=== PATIENT | male | born 1955 | race Two or more races ===

== ENCOUNTER 2024-10-21 18:30 | Inpatient (IN) | payer MEDICARE, OTHER ==
[~2024-10-21] VITALS: Ht 160 cm; Wt 68.9 kg
[2024-10-21 20:50] VITALS: BP 125/79; TEMP 97.5; O2SAT 96
[2024-10-21] MEDS ORDERED: ACETAMINOPHEN 325 MG TABLET PO PRN (22:00)
[2024-10-21] MEDS ORDERED: ONDANSETRON HCL/PF 4 MG/2 ML VIAL IVP PRN (22:00)
[2024-10-21] MEDS ORDERED: MAG HYDROX/AL HYDROX/SIMETH 30 ML UDC PO PRN (22:00)
[2024-10-21] MEDS ORDERED: MAGNESIUM HYDROXIDE 30 ML UDC PO PRN (22:00)
[2024-10-21 22:36] VITALS: BP 125/79; TEMP 97.5; O2SAT 96
[2024-10-21 22:47] VITALS: BP 125/79; TEMP 97.5; O2SAT 96
[2024-10-21 22:58] LABS: WHITE BLOOD COUNT (AUTO) 7.6 K/uL (4.3-11.0)
[2024-10-21 23:03] LABS: PLATELET COUNT (AUTO) 224 K/uL (150-450); RED BLOOD CELL COUNT(AUTO) 2.94 MIL/uL (4.5-6.0); RED CELL DISTRIBUTION WIDTH 18.5 % (11.5-15.0)
[2024-10-21 23:14] LABS: CALCIUM, SERUM 7.9 mg/dL (8.5-10.1); CREATININE 0.8 mg/dL (0.6-1.3); SODIUM SERUM 138.0 mmol/L (136-145); UREA NITROGEN, BLOOD 31.0 mg/dL (7-18)
[2024-10-21 23:27] LABS: EOSINOPHILS % (MANUAL) 17 % (0-4); LYMPHOCYTES % (MANUAL) 7 % (16-48); MONOCYTES % (MANUAL) 2 % (0-11.0); NEUTROPHILS % (MANUAL) 74 (42-76)
[2024-10-21 23:29] LABS: PLATELET ESTIMATE ADEQUATE
[2024-10-21] MEDS ORDERED: OCTREOTIDE 500 MCG/ML VIAL ONE (23:49)
[2024-10-21] MEDS ORDERED: OCTREOTIDE 100 MCG/ML VIAL ONE (23:56)
[2024-10-21] MEDS ORDERED: OCTREOTIDE 50 MCG/ML AMPUL ONE (23:56)
[2024-10-22] VITALS (7 sets, daily range): BP systolic 108–125; BP diastolic 60–79; TEMP 97.5–98.1; O2SAT 96–100
[2024-10-22] MEDS: OCTREOTIDE 1,250 MCG in IV NS 0.9% 247.5 ML IV SCH (00:23)
[2024-10-22 07:42] LABS: LDL 80.0 mg/dL (0-99)
[2024-10-22 07:49] LABS: ASPARTATE AMINOTRANSFERASE 32.0 U/L (15-37); CALCIUM, SERUM 7.4 mg/dL (8.5-10.1); CREATININE 0.8 mg/dL (0.6-1.3); PHOSPHORUS 2.7 mg/dL (2.5-4.9); SODIUM SERUM 137.0 mmol/L (136-145); TOTAL PROTEIN, SERUM 6.0 g/dL (6.4-8.2); UREA NITROGEN, BLOOD 26.0 mg/dL (7-18)
[2024-10-22] MEDS ORDERED: METF1000 PO (07:57)
[2024-10-22] MEDS ORDERED: EMPA10TA PO (07:57)
[2024-10-22] MEDS ORDERED: FERR325T23 PO (07:57)
[2024-10-22] MEDS ORDERED: FURO20TA4 PO (07:57)
[2024-10-22] MEDS: CEFTRIAXONE 1 G in IV D5W 50 ML IV SCH (08:04)
[2024-10-22] MEDS: PANTOPRAZOLE 40 MG VIAL IV SCH (08:05)
[2024-10-22 08:19] LABS: PLATELET COUNT (AUTO) 217 K/uL (150-450); RED BLOOD CELL COUNT(AUTO) 2.87 MIL/uL (4.5-6.0); RED CELL DISTRIBUTION WIDTH 18.3 % (11.5-15.0); WHITE BLOOD COUNT (AUTO) 9.1 K/uL (4.3-11.0)
[2024-10-22 08:31] LABS: IRON, SERUM 11.0 ug/dl (50-175)
[2024-10-22 09:04] LABS: NEUTROPHILS % (MANUAL) 61 (42-76)
[2024-10-22 09:05] LABS: EOSINOPHILS % (MANUAL) 27 % (0-4); LYMPHOCYTES % (MANUAL) 6 % (16-48); MONOCYTES % (MANUAL) 6 % (0-11.0); PLATELET ESTIMATE ADEQUATE
[2024-10-22] MEDS ORDERED: DEXTROSE 50%-WATER 50 ML DISP.SYRIN IV PRN (11:00)
[2024-10-22] MEDS: INSULIN REGULAR, HUMAN 100 UNIT/ML 3 ML VIAL SQ PRN (12:29)
[2024-10-22] MEDS: BLOOD SUGAR DIAGNOSTIC 1 EACH STRIP IN SCH (12:30)
[2024-10-22] MEDS: SOD FERRIC GLUC 125 MG in IV NS 0.9% 100 ML IV SCH (14:41)
[2024-10-22 18:36] LABS: INR 1.17 (0.91-1.10)
[2024-10-23] VITALS (10 sets, daily range): BP systolic 92–131; BP diastolic 54–83; TEMP 97.5–98.4; O2SAT 98–100
[2024-10-23 06:49] LABS: CALCIUM, SERUM 7.5 mg/dL (8.5-10.1); CREATININE 0.8 mg/dL (0.6-1.3); PHOSPHORUS 1.9 mg/dL (2.5-4.9); SODIUM SERUM 138.0 mmol/L (136-145); UREA NITROGEN, BLOOD 21.0 mg/dL (7-18)
[2024-10-23 07:29] LABS: PLATELET COUNT (AUTO) 214 K/uL (150-450); RED BLOOD CELL COUNT(AUTO) 2.70 MIL/uL (4.5-6.0); RED CELL DISTRIBUTION WIDTH 19.1 % (11.5-15.0); WHITE BLOOD COUNT (AUTO) 8.4 K/uL (4.3-11.0)
[2024-10-23] MEDS: EMPAGLIFLOZIN 10 MG TABLET PO SCH (08:10)
[2024-10-23] MEDS: FUROSEMIDE 20 MG TABLET PO SCH (08:10)
[2024-10-23] MEDS: POTASSIUM CHLORIDE 20 MEQ TAB.PRT.SR PO SCH (10:15)
[2024-10-23] MEDS ORDERED: POTASSIUM CL. PREMIX PERIPHER. 50 ML IV SCH (10:30)
[2024-10-23 12:23] LABS: EOSINOPHILS % (MANUAL) 24 % (0-4); LYMPHOCYTES % (MANUAL) 4 % (16-48); MONOCYTES % (MANUAL) 6 % (0-11.0); NEUTROPHILS % (MANUAL) 66 (42-76); PLATELET ESTIMATE ADEQUATE
[2024-10-23] MEDS: K PHOS NEUTRAL 250 MG TABLET PO ONE (15:22)
[2024-10-24 04:00] VITALS: BP 119/66; TEMP 97.9; O2SAT 98
[2024-10-24 07:22] LABS: PLATELET COUNT (AUTO) 199 K/uL (150-450); RED BLOOD CELL COUNT(AUTO) 3.22 MIL/uL (4.5-6.0); RED CELL DISTRIBUTION WIDTH 20.4 % (11.5-15.0); WHITE BLOOD COUNT (AUTO) 8.7 K/uL (4.3-11.0)
[2024-10-24 08:00] VITALS: BP 125/71; TEMP 97.5; O2SAT 99
[2024-10-24 08:09] LABS: CALCIUM, SERUM 7.5 mg/dL (8.5-10.1); CREATININE 0.7 mg/dL (0.6-1.3); PHOSPHORUS 2.2 mg/dL (2.5-4.9); SODIUM SERUM 144.0 mmol/L (136-145); UREA NITROGEN, BLOOD 13.0 mg/dL (7-18)
[2024-10-24] MEDS ORDERED: FERROUS SULFATE (325 MG) 325 MG/TAB TABLET PO SCH (09:00)
[2024-10-24] MEDS: POTASSIUM CHLORIDE 20 MEQ TAB.PRT.SR PO ONE (09:29)
[2024-10-24] MEDS ORDERED: FERR325T23 PO (11:18)
[2024-10-24 11:41] LABS: EOSINOPHILS % (MANUAL) 36 % (0-4); LYMPHOCYTES % (MANUAL) 9 % (16-48); MONOCYTES % (MANUAL) 4 % (0-11.0); NEUTROPHILS % (MANUAL) 51 (42-76); PLATELET ESTIMATE ADEQUATE
[2024-10-24] MEDS ORDERED: ASCO-495 PO (14:52)
[2024-10-24] MEDS ORDERED: PANT40TA2 PO (14:52)
[2024-10-24 16:00] VITALS: BP 140/73; TEMP 97.5; O2SAT 98
[2024-10-24] MEDS: K PHOS NEUTRAL 250 MG TABLET PO ONE (16:46)
== END 2024-10-24 18:53 | disposition home health service (06) | DRG 812 ==
LOC: MEDSG1 20:44 → TELE1 21:38 → MEDSG1 10-23 21:26
PROVIDERS: ADMIT Nurse Practitioner Family
PROC: 30233N1 Transfusion of Nonautologous Red Blood Cells into Peripheral Vein, Percutaneous Approach (ICD-10-PCS; principal; 2024-10-23)
DX: D50.9 Iron deficiency anemia, unspecified (principal); D68.59 Other primary thrombophilia; K70.31 Alcoholic cirrhosis of liver with ascites; E86.0 Dehydration; R53.1 Weakness; E11.9 Type 2 diabetes mellitus without complications; F10.21 Alcohol dependence, in remission; Z79.84 Long term (current) use of oral hypoglycemic drugs; E88.09 Other disorders of plasma-protein metabolism, not elsewhere classified
CPT/HCPCS: 36415; 71045-TC; 76705-TC; 80048-TC; 80061-TC; 80076-TC; 82728-TC; 82962-TC; 83540-TC; 83735-TC; 84100-TC; 84443-TC; 85027-TC; 85610-TC; 85730-TC; 86850-TC; 93970-TC; 97110-TC; 97116-TC; 97530-TC; A4223; G0378; J0696; J1815; J2354; J2470; J2916; J7030; J7050; J7060; P9016